=== PATIENT | male | born 1990 | race Caucasian/White ===

== ENCOUNTER → 2020-08-15 | Outpatient (CLI) | payer BC ==
--- NOTE | 2020-08-16 06:54 | CT ---
EXAMINATION TYPE: CT soft tissue neck w con DATE OF EXAM: 08/15/2020 HISTORY: Globus sensation and right sided anterior neck pain. COMPARISON: NONE CT DLP: 722 mGycm. Automated Exposure Control for Dose Reduction was Utilized. TECHNIQUE: CT scan of the neck is performed with IV Contrast, patient injected with 100ml mL of Isov ue 300, axial images are obtained, coronal and sagittal reformatted images are reviewed. FINDINGS: Airway: Some symmetric lingular tonsillar prominence of base of tongue. Patent oropharyngeal airway. Prominent hypopharyngeal airway axial image 58 for reference. Normal size thyroid. Some residual thym us tissue anterior superior mediastinum suspected. Parotid/submandibular glands: No gross abnormality seen. Carotid/Vascular Structures: Bovine type arch which is normal variant. Osseous Structures: Dextroconvex scoliotic curvature or positioning Other: Scattered prominent but predominantly subcentimeter lymph nodes throughout the neck bilaterall y. Few prepped slightly enlarged size. Reference there is 1.4 x 1.0 cm lymph node posterior to right submandibular gland anterior to carotid and jugular vessels axial image 64 above the hyoid bone. Ther e is similar appearing and location lymph node on the left measuring 1.6 x 1.0 cm axial image 66. Pro minent posterior triangle lymph nodes noted, for reference and 1.4 x 0.8 cm lymph node seen axial luiza ge 58 below hyoid bone above the vocal cords IMPRESSION: Prominent neck lymph nodes bilaterally with some borderline enlarged lymph nodes. Need to exclude neoplasm such as as lymphoma with PET/CT should be based on clinical and lab correlation.
== END | disposition home or self-care (01) ==
LOC: RADCTMAIN 16:46
PROVIDERS: ATTEND Otolaryngology
DX: R59.0 Localized enlarged lymph nodes (principal); F45.8 Other somatoform disorders
CPT/HCPCS: 70491; Q9967

== ENCOUNTER 2020-09-06 08:41 | Day surgery (SDC) | payer BC ==
[2020-09-06 09:09] VITALS: RESP 16; TEMP 98.2
[2020-09-06 09:59] VITALS: BP 137/71; PULSE 76
--- NOTE | 2020-09-06 11:12 | US ---
ULTRASOUND GUIDED BILATERAL LYMPH NODE CORE BIOPSY: CLINICAL HISTORY: Request for bilateral lymph node core biopsy FINDINGS: The procedure was explained to the patient. The risks, complications, benefits and alternatives were discussed and any questions were answered. Informed consent was obtained. Patient was placed supin e on the ultrasound table and prepped and draped in the usual sterile fashion. Utilizing a 18-gauge core biopsy needle samples were obtained from the requested right and left neck lymph node. Patient w as stable throughout the procedure. Pathology is pending. All elements of maximal barrier technique were utilized. IMPRESSION: 1. Successful ultrasound guided core biopsy lymph node bilateral neck. Pathology pending.
== END 2020-09-06 10:05 | disposition home or self-care (01) ==
LOC: RADPROMAIN 08:41
PROVIDERS: ATTEND Otolaryngology
DX: R22.1 Localized swelling, mass and lump, neck (principal)
CPT/HCPCS: 38505; 76942; 88305; 88341; 88342

== ENCOUNTER → 2021-11-28 | Outpatient (CLI) | payer BC ==
--- NOTE | 2021-11-28 07:59 | MR ---
EXAMINATION TYPE: MR iac wo/w con DATE OF EXAM: 11/28/2021 7:54 AM COMPARISON: NONE HISTORY: Hearing loss TECHNIQUE: Multiplanar and multispin-echo imaging of the brain was performed both before and after the administr ation of contrast. High-resolution images are obtained of the internal auditory canals performed uti lizing 9 mL intravenous Gadavist contrast. The ventricles, basal cisterns and sulci overlying the cerebral convexities are within normal limits. There is no evidence for midline shift or mass effect. Acute intracranial hemorrhage or extra-axial collection is not evident. There are no abnormal areas of increased or decreased signal intensity within the brain parenchyma. High-resolution imaging of the internal auditory canals fails demonstrate evidence for an enhancing a coustic schwannoma or cerebellopontine cistern angle mass. Following contrast administration, there is no evidence for pathologic enhancement or enhancing mass. The paranasal sinuses are well-aerated. Mild chronic mastoiditis left-sided mastoid air cells. IMPRESSION: 1. No evidence of acoustic schwannoma or cerebellopontine angle mass.
== END | disposition home or self-care (01) ==
LOC: RADMRIMAIN 06:48
PROVIDERS: ATTEND Otolaryngology
DX: H91.90 Unspecified hearing loss, unspecified ear (principal)
CPT/HCPCS: 70553; A9585